=== PATIENT | male | born 1940 | race Two or more races ===

== ENCOUNTER 2020-08-22 03:16 | Inpatient (IN) | payer MEDICARE, BC ==
[2020-08-22] VITALS (16 sets, daily range): BP systolic 104–145; BP diastolic 44–92
[~2020-08-22] VITALS: Ht 165.1 cm; Wt 106.6 kg
[~2020-08-22 03:16] MED LIST: DILTIAZEM PO; METH-807 PO
--- NOTE | 2020-08-22 03:20 | NUR ---
Dr. Kelly at bedside for MSE.
[2020-08-22] MEDS ORDERED: MORPHINE SULFATE 4 MG/1 ML DISP.SYRIN IV ONE (03:30)
[2020-08-22] MEDS ORDERED: ONDANSETRON 4 MG/2 ML VIAL IV ONE (03:30)
--- NOTE | 2020-08-22 03:43 | NUR ---
Pt refused CTA even after MD explanation of the procedure and risks of refusing procedure.
[2020-08-22] MEDS ORDERED: DILTIAZEM HCL 25 MG IV IV ONE ×2 (03:45→04:30)
--- NOTE | 2020-08-22 03:49 | NUR ---
Xray at bedside.
[2020-08-22 03:53] LABS: POTASSIUM 4.3 mmol/L (3.5-5.1)
[2020-08-22] MEDS ORDERED: MORPHINE SULFATE 4 MG/1 ML DISP.SYRIN ONE (03:53)
[2020-08-22] MEDS ORDERED: ONDANSETRON 4 MG/2 ML VIAL ONE (03:53)
[2020-08-22] MEDS ORDERED: DILTIAZEM HCL 25 MG IV ONE ×2 (03:54→04:55)
[2020-08-22 03:55] LABS: HEMATOCRIT 38.9 % (36.7-47.1); MEAN CORPUSCULAR HEMOGLOBIN 34.6 uug (23.8-33.4); MEAN CORPUSCULAR VOLUME 101.2 fL (73.0-96.2)
[2020-08-22 04:10] LABS: BILIRUBIN,DIRECT 0.2 mg/dL (0.0-0.2); BILIRUBIN,TOTAL 0.4 mg/dL (0.2-1.0); TOTAL PROTEIN, SERUM 6.8 g/dL (6.4-8.2)
[2020-08-22 04:24] LABS: PLATELET COUNT (AUTO) 77 K/uL (152-348)
[2020-08-22 04:28] LABS: EOSINOPHILS % (MANUAL) 9 % (0-8); LYMPHOCYTES % (MANUAL) 30 % (20-40); MONOCYTES % (MANUAL) 3 % (2-10); NEUTROPHILS % (MANUAL) 58 % (42-75)
[2020-08-22] MEDS ORDERED: DILTIAZEM HCL 30 MG TABLET PO ONE (04:30)
[2020-08-22] MEDS ORDERED: DILTIAZEM HCL IV 125 MG in IV NORMAL SALINE 100 ML IV PRN ×4 (04:45→09:30)
[2020-08-22] MEDS ORDERED: DILTIAZEM HCL 50 MG IV ONE (04:55)
--- NOTE | 2020-08-22 05:24 | NUR ---
Called [facility] to page Dr. Pinedo.
--- NOTE | 2020-08-22 05:30 | NUR ---
Dr. Kelly on panel call with Dr. Pinedo. Patient accepted for admission to CCU, diagnosis AFIB with RVR.
[2020-08-22] MEDS ORDERED: MORPHINE SULFATE 2 MG/1 ML DISP.SYRIN IV PRN (06:00)
[2020-08-22] MEDS ORDERED: ONDANSETRON 4 MG/2 ML VIAL IV PRN (06:00)
[2020-08-22] MEDS ORDERED: Z GUARD REMEDY PASTE 57 GM TUBE TOP PRN (06:00)
[2020-08-22] MEDS ORDERED: MAGNESIUM HYDROXIDE 30 ML LIQUID UDC PO PRN (06:00)
[2020-08-22] MEDS ORDERED: HYDROCODONE/APAP 5-325MG TABLET PO PRN (06:00)
[2020-08-22] MEDS ORDERED: ACETAMINOPHEN 325 MG TABLET PO PRN (06:00)
--- NOTE | 2020-08-22 06:45 | NUR ---
Report given to Levar Gilmore.
[2020-08-22] MEDS: PANTOPRAZOLE SODIUM 40 MG TABLET.DR PO SCH (07:04)
[2020-08-22] MEDS ORDERED: PANTOPRAZOLE SODIUM 40 MG TABLET.DR PO ONE (07:09)
--- NOTE | 2020-08-22 07:43 | NUR ---
RESTING COMFORTABLY, AWAKE AND VERBALLY RESPONSIVE, DENIES ANY ACUTE DISCOMFORT AT THIS TIME. CARDIZEM IV DRIP RUNNING AT 15MG/H. REMAINS IN UNCONTROLLED A FIB , RATE VARIES FROM 90-120/M.
--- NOTE | 2020-08-22 08:25 | NUR ---
REPORT GIVEN TO ENZYME CHEMIST DAMIAN
--- NOTE | 2020-08-22 08:28 | NUR ---
TRANSFERRED TO ICU W/ FORMER HAND AND FLAP CURER VIA .
--- NOTE | 2020-08-22 08:47 | NUR ---
Received patent from ER. Patient alert and oriented x4. Ambulates with assist and able to transfer from wheelchair to bed with assist. Vital signs done upon admit. SBP 138/68, afib on monitor with HR 105 on cardizem drip at 15mg/hr. temp at 98.0, o2 sat 98% on RA. Patient denies pain at this time. will continue to monitor. Addendum: 08/22/20 at 0856 by JUDY GEE RN iv access to left AC 18 jose intact and patent.
--- NOTE | 2020-08-22 09:00 | NUR ---
As informed attending aware and notified of pt's admission.
--- NOTE | 2020-08-22 09:37 | NUR ---
Cardiology services, in the unit to examine, pt. orders received. Addendum: 08/22/20 at 0941 by DAMIAN PENNY RN orders to start amiodarone drip 1 hour after eliquis administered. and to continue with Diltiazem drip until pt. converts to sinus.
[2020-08-22] MEDS ORDERED: AMIODARONE HCL IV 150 MG in IV DEXTROSE 5% 100 ML IV ONE (09:45)
[2020-08-22] MEDS ORDERED: AMIODARONE HCL IV 450 MG in IV DEXTROSE 5% 250 ML IV PRN (09:45)
[2020-08-22 10:16] LABS: *BILIRUBIN,URIN NEGATIVE (NEGATIVE); *BLOOD, URINE NEGATIVE (NEGATIVE); *CLARITY,URINE CLEAR (CLEAR); *COLOR,URINE YELLOW (YELLOW); *KETONES,URINE NEGATIVE (NEGATIVE); *UROBILINOGEN,URINE 0.2 E.U./dl (NORMAL); LEUKOCYTE ESTERASE ,URINE NEGATIVE (NEGATIVE); NITRITE, URINE NEGATIVE (NEGATIVE); UGLUCOSE NEGATIVE (NEGATIVE)
[2020-08-22] MEDS: AMIODARONE HCL IV 450 MG in IV DEXTROSE 5% 250 ML IV PRN ×2 (10:18→16:28)
[2020-08-22] MEDS: APIXABAN 5 MG TABLET PO SCH ×2 (10:21→20:31)
--- NOTE | 2020-08-22 15:28 | NUR ---
A call to Activities Counselor Dr. Johnston to report patient been off cardizem drip and remains on control A-fib rate in the 80-90's. No new orders received.
[2020-08-23] VITALS (9 sets, daily range): BP systolic 122–147; BP diastolic 61–74
[2020-08-23 05:06] LABS: HEMATOCRIT 37.7 % (36.7-47.1); MEAN CORPUSCULAR HEMOGLOBIN 33.7 uug (23.8-33.4); PLATELET COUNT (AUTO) 68 K/uL (152-348)
[2020-08-23 05:27] LABS: PHOSPHOROUS 3.5 mg/dL (2.5-4.9); POTASSIUM 4.9 mmol/L (3.5-5.1)
[2020-08-23 05:30] LABS: THYROID STIMULATING HORMONE 8.201 mIU/mL (0.358-3.740)
[2020-08-23] MEDS: PANTOPRAZOLE SODIUM 40 MG TABLET.DR PO SCH (06:00)
--- NOTE | 2020-08-23 06:53 | NUR ---
No acute changes throughout shift. A&Ox4. Cooperative. No reports of pain. Saturations > 94% on room air - although when patient is asleep, at times his sats drop - likely sleep apnea or obesity related hypoventilation. No SOB. Converted to Sinus Rhythm at 1851 on 08/22/20. Sinus Goyo for the entirety of my shift. No reports of chest pain or palpitations. GI/: No BM. 1L of urine output.
[2020-08-23] MEDS: APIXABAN 5 MG TABLET PO SCH (08:10)
--- NOTE | 2020-08-23 08:10 | NUR ---
patient seen by Dr. Washington and was told that he can be discharged today if the primary doctor did not have any further plan for his low platelets than he might be discharged today.
--- NOTE | 2020-08-23 08:23 | NUR ---
Patient is removing all the wires and blood pressure cuff and stated that he has been released by the doctor (breakfast server). I explained to him that from a cardiology stand point he has been cleared and the breakfast server explained to him that the primary doctor may want to continue to monitor regarding his platelet level because they were low. He insisted that he did not want to wait for the primary doctor. and and that the breakfast server said he can go home today.I informed him that if he leaves now than he will have to sign AMA form and it is not a discharge from the doctor. 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 And proceeded to remove everything. I removed his IV and applied pressure dressing and in his martinez he quickly started getting his clothes to get dressed. He yelled out that his arm was bleeding and I placed more gauze on his arm and he reached for his phone and started taking picture of the blood and of myself. I explained that he is not allowed to take pictures and stated that I made him bleed and that he will send it to his seafood farmer. I held pressure which he allowed this time applied more dressing and tape and informed him to not remove it right away because he insisted that he wanted to remove right away when he leaves.
--- NOTE | 2020-08-23 08:40 | NUR ---
Charge nurse spoke to daughter in the unit of what had happened and security waiting in the unit to leave and asked him if he had taken any pictures and he denied taking pictures and asked if he can see the phone he denied taking pictures and did not show his phone. After daughter speaking to him after they stepped out of the unit security came back and asked if he can come back in to wait for the primary doctor we informed him that he will have to go thru the ER or to another hospital if he wanted to get readmitted.
== END 2020-08-23 08:35 | disposition left against medical advice (07) | DRG 310 ==
LOC: ER 03:22 → CCU 08:12
PROVIDERS: ADMIT Internal Medicine; ATTEND Internal Medicine
DX: I48.0 Paroxysmal atrial fibrillation (principal); D69.6 Thrombocytopenia, unspecified; Z20.822 Contact with and (suspected) exposure to COVID-19; E03.9 Hypothyroidism, unspecified; E11.9 Type 2 diabetes mellitus without complications; E66.9 Obesity, unspecified; I70.0 Atherosclerosis of aorta; Z68.39 Body mass index [BMI] 39.0-39.9, adult; R74.01 Elevation of levels of liver transaminase levels; Z91.81 History of falling
CPT/HCPCS: 36415; 70030-TC; 71045; 78579; 83735; 84100; 84443; 85025; 93005; 93307; A4663; G0378; J0282; J2270; J2405; J3490; J7060

== ENCOUNTER 2021-01-14 03:12 | Emergency (ER) | payer MEDICARE, BC ==
[~2021-01-14] VITALS: Ht 167.6 cm; Wt 108.9 kg
--- NOTE | 2021-01-14 03:20 | NUR ---
Dr. Weston at bedside for MSE.
[2021-01-14] MEDS ORDERED: LIDOCAINE HCL 2% 20 ML VIAL IJ ONE (03:30)
[2021-01-14] MEDS ORDERED: EPINEPHRINE AMP 1 MG in IV DEXTROSE 5% 250 ML IV ONE (03:30)
[2021-01-14] MEDS ORDERED: SILVER NITRATE APPLICATOR STICK EACH TP ONE ×2 (03:30→03:36)
--- NOTE | 2021-01-14 04:03 | NUR ---
Patient discharged to home in stable condition. Written and verbal after care instructions given. Patient verbalizes understanding of instructions. Stressed follow up or return to ER for worsening s/s. Patient out of ER with steady gait, no acute signs of distress, VSS, all belongings taken.
[2021-01-14 04:04] VITALS: BP 155/85
== END 2021-01-14 04:04 | disposition home or self-care (01) ==
LOC: ER 03:16
DX: S00.31XA Abrasion of nose, initial encounter (principal); X58.XXXA Exposure to other specified factors, initial encounter; Y92.89 Other specified places as the place of occurrence of the external cause; R03.0 Elevated blood-pressure reading, without diagnosis of hypertension
CPT/HCPCS: A4663

== ENCOUNTER 2022-01-19 02:55 | Emergency (ER) | payer MEDICARE, BC ==
[~2022-01-19] VITALS: Ht 167.6 cm; Wt 108.9 kg
--- NOTE | 2022-01-19 03:20 | NUR ---
Pt. walked to the ER c/o dry cough, fever, chills and throat pain. Pt reports symptoms started 3 days ago. Denies SOB. Denies chest pain and n/v.
[2022-01-19] MEDS ORDERED: LIDOCAINE VISCUS 2% 15 ML UDC MM ONE (04:00)
[2022-01-19] MEDS ORDERED: ACETAMINOPHEN 325 MG TABLET PO ONE ×2 (04:00→04:15)
[2022-01-19] MEDS ORDERED: LIDOCAINE VISCUS 2% 15 ML UDC ONE (04:06)
[2022-01-19] MEDS ORDERED: ACETAMINOPHEN 325 MG TABLET ONE (04:06)
[2022-01-19 04:44] LABS: CREATININE 1.3 mg/dL (0.6-1.3); POTASSIUM 4.2 mmol/L (3.5-5.1)
[2022-01-19 04:45] LABS: MEAN CORPUSCULAR HEMOGLOBIN 35.4 uug (23.8-33.4); MEAN CORPUSCULAR VOLUME 100.1 fL (73.0-96.2)
[2022-01-19 04:50] LABS: BILIRUBIN,TOTAL 0.7 mg/dL (0.2-1.0); TOTAL PROTEIN, SERUM 7.1 g/dL (6.4-8.2)
[2022-01-19 04:58] LABS: PLATELET COUNT (AUTO) 41 K/uL (152-348)
[2022-01-19 05:34] LABS: LYMPHOCYTES % (MANUAL) 14 % (20-40); MONOCYTES % (MANUAL) 6 % (2-10); NEUTROPHILS % (MANUAL) 80 % (42-75)
--- NOTE | 2022-01-19 07:05 | NUR ---
Patient discharged to home in stable condition. Written and verbal after care instructions given. Patient verbalizes understanding of instructions. Stressed follow up or return to ER for worsening s/s.
[2022-01-19 07:06] VITALS: BP 157/65
== END 2022-01-19 07:06 | disposition home or self-care (01) ==
LOC: ER 03:04
DX: J10.1 Influenza due to other identified influenza virus with other respiratory manifestations (principal); D69.6 Thrombocytopenia, unspecified; Z20.822 Contact with and (suspected) exposure to COVID-19; R91.8 Other nonspecific abnormal finding of lung field; R74.01 Elevation of levels of liver transaminase levels; I48.91 Unspecified atrial fibrillation; Z79.899 Other long term (current) drug therapy
CPT/HCPCS: 36415; 70030-TC; 71046; 85025; 87400; A4663

== ENCOUNTER 2022-03-02 10:13 | Outpatient (CLI) | payer MEDICARE, BC ==
[2022-03-02 11:31] LABS: HEMATOCRIT 36.4 % (36.7-47.1); MEAN CORPUSCULAR HEMOGLOBIN 34.7 uug (23.8-33.4); MEAN CORPUSCULAR VOLUME 101.4 fL (73.0-96.2); PLATELET COUNT (AUTO) 57 K/uL (152-348)
[2022-03-02 12:07] LABS: CREATININE 1.1 mg/dL (0.6-1.3); POTASSIUM 4.2 mmol/L (3.5-5.1); TOTAL PROTEIN, SERUM 6.7 g/dL (6.4-8.2)
[2022-03-02 12:27] LABS: THYROID STIMULATING HORMONE 9.98 mIU/mL (0.358-3.740)
[2022-03-02 23:55] LABS: EOSINOPHILS % (MANUAL) 6 % (0-8); LYMPHOCYTES % (MANUAL) 35 % (20-40); MONOCYTES % (MANUAL) 8 % (2-10); NEUTROPHILS % (MANUAL) 51 % (42-75)
[2022-03-03 07:07] LABS: *IMMUNOGLOBULIN G, SERUM 1276 mg/dL (603-1613); IMMUNOGLOBULIN M, SERUM 121 mg/dL (15-143)
[2022-03-03 12:06] LABS: HEPATITIS B SURFACE AG Negative (Negative)
[2022-03-05 09:06] LABS: A/G RATIO 0.9 (0.7-1.7); ALBUMIN 2.8 g/dL (2.9-4.4); ALPHA-1-GLOBULIN 0.3 g/dL (0.0-0.4); ALPHA-2-GLOBULIN 0.5 g/dL (0.4-1.0); BETA GLOBULIN 1.1 g/dL (0.7-1.3); GAMMA GLOBULIN 1.4 g/dL (0.4-1.8); GLOBULIN, TOTAL 3.2 g/dL (2.2-3.9); M-SPIKE 0.4 g/dL (Not Observed)
[2022-03-06 08:06] LABS: *HGBFRC HEMOGLOBIN A2 2.5 % (1.8-3.2)
== END 2022-03-02 23:59 | disposition home or self-care (01) ==
LOC: RAD 10:13 → LAB 23:59
PROVIDERS: ATTEND Internal Medicine Hematology & Oncology
DX: Z13.228 Encounter for screening for other metabolic disorders (principal); D64.9 Anemia, unspecified; Z13.21 Encounter for screening for nutritional disorder; R77.9 Abnormality of plasma protein, unspecified; R79.82 Elevated C-reactive protein (CRP); R76.0 Raised antibody titer; B18.1 Chronic viral hepatitis B without delta-agent; D69.6 Thrombocytopenia, unspecified; D51.9 Vitamin B12 deficiency anemia, unspecified; R77.2 Abnormality of alphafetoprotein; B19.10 Unspecified viral hepatitis B without hepatic coma
CPT/HCPCS: 36415; 70030-TC; 76700; 82746; 82784; 83550; 84155; 84165; 84443; 85025; 86038; 86140; 86334; 86677; 86704; 86706; 86803; 87340; 87806

== ENCOUNTER 2023-10-07 19:59 | Emergency (ER) | payer MEDICARE, BC ==
[~2023-10-07] VITALS: Ht 170.2 cm; Wt 109.3 kg
[2023-10-07 20:02] VITALS: O2SAT 97
[2023-10-07] MEDS ORDERED: DILT30TA2 PO (20:13)
== END 2023-10-07 21:30 | disposition home or self-care (01) ==
LOC: ER 20:02
DX: R14.0 Abdominal distension (gaseous) (principal); I48.91 Unspecified atrial fibrillation; Z98.890 Other specified postprocedural states; Z79.899 Other long term (current) drug therapy
CPT/HCPCS: 93005; A4606; A4663